=== PATIENT | female | born 1985 | race Caucasian/White ===

== ENCOUNTER 2016-09-17 23:05 | Emergency (ER) | payer SELFPAY ==
[2016-09-18 01:07] VITALS: BP 138/74
== END 2016-09-18 01:01 | disposition home or self-care (01) ==
LOC: ED 23:05
DX: S93.601A Unspecified sprain of right foot, initial encounter (principal); W18.49XA Other slipping, tripping and stumbling without falling, initial encounter; Y93.01 Activity, walking, marching and hiking; Y92.89 Other specified places as the place of occurrence of the external cause; Y99.8 Other external cause status